=== PATIENT | female | born 2000 | race Caucasian/White ===

== ENCOUNTER 2019-03-10 22:25 | Emergency (ER) | payer OTHER ==
[~2019-03-10] VITALS: Ht 160 cm; Wt 95.3 kg
[2019-03-10 23:04] VITALS: Ht 160 cm; Wt 95.3 kg
[2019-03-11 01:53] VITALS: BP 123/70
== END 2019-03-11 01:53 | disposition home or self-care (01) ==
LOC: ED 22:25
DX: O26.891 Other specified pregnancy related conditions, first trimester (principal); M54.5 Low back pain; O99.511 Diseases of the respiratory system complicating pregnancy, first trimester; J45.909 Unspecified asthma, uncomplicated; Z3A.11 11 weeks gestation of pregnancy
CPT/HCPCS: 36415

== ENCOUNTER 2019-04-01 16:24 | Emergency (ER) | payer OTHER ==
[~2019-04-01] VITALS: Ht 160 cm; Wt 94.3 kg
[2019-04-01 16:35] VITALS: Ht 160 cm; Wt 94.3 kg
[2019-04-01 19:29] VITALS: BP 111/69
== END 2019-04-01 19:30 | disposition home or self-care (01) ==
LOC: ED 16:24
DX: M54.5 Low back pain (principal); J45.909 Unspecified asthma, uncomplicated
CPT/HCPCS: J1885